=== PATIENT | male | born 1985 | race Caucasian/White ===

== ENCOUNTER 2020-02-27 00:55 | Emergency (ER) | payer BC, SELFPAY ==
[2020-02-27] VITALS (8 sets, daily range): BP systolic 151–181; BP diastolic 92–110; PULSE 68–100; RESP 16–24; TEMP 36.1–36.7; O2SAT 96–99; BMI 34.2
--- NOTE | 2020-02-27 01:26 | US_ITS ---
WS: [id number] SCROTAL ULTRASOUND EXAMINATION CLINICAL INFORMATION: Testicular pain COMPARISON: None. FINDINGS: TESTES Normal in size and echotexture, without focal lesion. Color Doppler: Normal color Doppler flow pattern. Right testes size: 4.1 cm x 2.9 cm x 2.8 cm. Left testes size: 4.5 cm x 2.5 cm x 2.4 cm. EPIDIDYMIDES Normal in size and echotexture, without focal lesion. Color Doppler: Normal color Doppler flow pattern. Right epididymis size: 1.0 cm Left epididymis size: 1.6 cm . HYDROCELE None. VARICOCELE None. OTHER FINDINGS None. US/US scrotum [id number] IMPRESSION: 1. Large right varicocele measuring 2.8 x 1.6 cm 2. Testicles are otherwise unremarkable
[2020-02-27] MEDS: morphine 4 mg/mL SDV 1 mL IVP (01:48)
[2020-02-27 01:49] LABS: Basophils # 0.1 10^3/uL (0.0-0.1); Basophils % 0.8 %; Eosinophils # 0.1 10^3/uL (0.0-0.8); Eosinophils % 1.6 %; Hematocrit 44.2 % (42.0-52.0); Hemoglobin 15.6 g/dL (11.7-16.6); Lymphocytes # 2.6 10^3/uL (0.8-4.8); Lymphocytes % 28.7 %; Mean Corpuscular HGB Conc 35.3 g/dL (30.0-36.0); Mean Corpuscular Hemoglobin 38.4 pg (28.0-34.0); Mean Corpuscular Volume 108.9 fL (80-94); Mean Platelet Volume 8.8 fL (7.4-10.4); Monocytes # 0.7 10^3/uL (0.2-0.9); Monocytes % 7.3 %; Neutrophils # 5.44 10^3/uL (1.8-7.7); Neutrophils % 60.4 %; Nucleated Red Blood Cells % 0 %; Platelet Count 355 10^3/cmm (130-400); Red Blood Count 4.06 10^6/uL (4.1-5.3); Red Cell Distribution Width 14.8 % (12.1-15.1)
[2020-02-27] MEDS: ondansetron 2 mg/ML SDV 2 mL 4 MG IVP (01:49)
--- NOTE | 2020-02-27 01:55 | CTR_ITS ---
PROCEDURE INFORMATION: Exam: CT Abdomen And Pelvis Without Contrast Exam date and time: 02/27/2020 1:57 AM Age: 34 years old Clinical indication: Abdominal pain; Flank; Right; Additional info: Flank/abdominal pain TECHNIQUE: Imaging protocol: Computed tomography of the abdomen and pelvis without contrast. Radiation optimization: All CT scans at this facility use at least one of these dose optimization techniques: automated exposure control; mA and/or kV adjustment per patient size (includes targeted exams where dose is matched to clinical indication); or iterative reconstruction. COMPARISON: No relevant prior studies available. RADIATION DOSE METRICS: Total DLP (mGy-cm): 2348.4 FINDINGS: Lungs: The lung bases are clear. Liver: Unremarkable. Gallbladder and bile ducts: No definite gallbladder abnormality by CT. No biliary tree dilation. Pancreas: Unremarkable. Spleen: Unremarkable. Adrenals: Unremarkable. Kidneys and ureters: Mild right hydronephrosis and hydroureter. There is a 2 mm distal right ureteral calculus, adjacent to the UVJ in the urinary bladder. The calculus may have has already been passed into the urinary bladder, or possibly could still be in the intramural portion of the distal right ureter. Please correlate clinically. No definite/visible intrarenal calculus. No left hydronephrosis. No visible left ureteral calculus. Stomach and bowel: There are no CT findings to strongly suggest diverticulitis. Appendix: The appendix is visualized and appears normal. Intraperitoneal space: No free air, ascites, or bowel distention. Vasculature: No evidence for abdominal aortic aneurysm. Lymph nodes: No retroperitoneal adenopathy. Bladder: Possibly some mild diffuse urinary bladder wall thickening. Evaluation is somewhat limited, as the bladder is not well distended. While nonspecific, this could indicate evidence for cystitis. Please correlate clinically. Reproductive: Essentially unremarkable for age. Bones/joints: There is bilateral L5 spondylolysis, no significant/obvious spondylolisthesis. Soft tissues: Small umbilical hernia, containing only fat. CT/CT kidney stone [id number] IMPRESSION: 1. 2 mm distal right ureteral calculus, please see above discussion. 2. Mild right hydronephrosis and hydroureter. 3. Possible mild urinary bladder wall thickening, see above. 4. Normal appendix. 5. Other findings discussed above. Radiation Dose CTDIVOL = (mGy): DLP = 2348.4 (mGy-cm)
[2020-02-27] MEDS: HYDROmorphone 1 mg/mL INJ 1 mL IVP ×2 (02:01→04:03)
--- NOTE | 2020-02-27 02:01 | ED_ITS ---
HPI - Male Genitourinary General: Chief complaint: Urogenital-Male Stated complaint: side pain, testicle pain Time Seen by Provider: 02/27/20 01:34 Source: patient Mode of arrival: ambulatory Limitations: no limitations History of Present Illness: HPI Narrative: Casey is a nice 34-year-old male who comes in complaining of right testicular and flank pain. The pain started intermittently over the past few days but over the past 2 hours but is much more severe. He denies any hematuria, fever, vomiting, or any other complaints. Patient states overall he feels well but continues to have pain in his right testicle and flank. Associated symptoms: Deny dysuria, hematuria, nausea or vomiting Review of Systems Const: Denies: fever(s), chills, body aches, fatigue, malaise or diaphoresis Eyes: Denies: change in vision, blurry vision, blind spots, photophobia, eye discharge or eye redness ENMT: Denies: throat pain, odynophagia, hoarseness, swelling of lips/tongue, oral sores, ear or mastoid pain, ear discharge, change in hearing or nasal discharge Card: Denies: chest pain, palpitations, irregular heart rhythm, edema, lightheadedness, syncope, pre-syncope, dyspnea on exertion or orthopnea Resp: Denies: dyspnea, productive cough, non-productive cough, wheezing, hemoptysis or chest congestion GI: Denies: abdominal pain, nausea, vomiting, hematemesis, coffee ground emesis, heartburn, diarrhea, constipation, GI cramping, hematochezia or melena : Reports: flank pain; Denies: dysuria, urinary frequency, urinary urgency or hematuria Musc: Denies: neck pain, back pain, extremity pain, extremity swelling, joint pain, joint swelling, joint redness, joint warmth or joint stiffness Skin/Breast: Denies: rash, pruritus, erythema, skin tenderness or jaundice Neuro: Denies: headache(s), numbness in extremities, weakness in extremities, sensory changes, lack of coordination, difficulty walking, dizziness, vertigo, confusion, Slurred speech present or seizure-like activity Luciano/Lymph: Denies: easy bruising, easy bleeding, petechiae, purpura or enlarged lymph nodes All/Imm: Denies: urticaria, throat swelling, tongue swelling, facial swelling or acute wheezing PFSH ED PFSH: Medical History No pertinent past medical history Physical Exam Const: COMMON NORMALS: no acute distress, patient oriented x3, no limitations, healthy appearing and well nourished GENERAL APPEARANCE: cooperative, well kempt and well developed HENMT: COMMON NORMALS: normocephalic, atraumatic, external ears normal, EAC's normal and Normal external nose present HEAD & SCALP: normal to inspection, normocephalic and atraumatic FACE & SINUS: normal facial exam and face symmetric NOSE: Normal external nose present and Normal nares present EXTERNAL EAR: Yes external ears normal EXTERNAL AUDITORY CANAL: EAC's normal MOUTH: Normal oral and palatal mucosa present, lip normal and tongue normal Eye: COMMON NORMALS: Equal, round and reactive pupils present and conjunctivae normal GENERAL EYE: appearance normal, both eyes and all related structures ALIGNMENT: Yes alignment normal PERIORBITAL: periorbital findings normal EYELID: eyelids normal CONJUNCTIVA: Yes conjunctivae normal SCLERA: sclerae normal PUPIL: Yes Equal, round and reactive pupils present Neck/C-Spine: COMMON NORMALS: full ROM, no lymphadenopathy, supple, no meningeal signs and no JVD GENERAL: Yes normal visual inspection and Yes trachea midline Chest: COMMONS NORMALS: normal inspection of the chest and normal palpation of entire chest wall Resp: COMMON NORMALS: normal respiratory effort, No retractions and No use of accessory muscles EFFORT & INSPECTION: Yes able to speak in complete sentences and Yes symmetric chest movement AUSCULTATION: no crackles, no rales, no rhonchi and no wheezes Cardio: COMMON NORMALS: no JVD, regular rate, regular rhythm, S1 normal heart sound present and S2 normal heart sound present RATE: regular rate RHYTHM: regular rhythm HEART SOUNDS: S1 normal heart sound present, S2 normal heart sound present, no click, no gallops, no murmurs, no rubs and abnormal split S2 GI: COMMON NORMALS: Soft to palpation and No hepatosplenomegaly present PALPATION: Yes Soft to palpation, No Tenderness to palpation present (GI), No Guarding due to palpation present (GI), No Rigid due to palpation, Yes No hepatosplenomegaly present, No Hernia present, No Palpable mass present and No Pulsatile mass present : COMMON NORMALS: Yes no CVA tenderness BLADDER/KIDNEY EXAM: Yes no CVA tenderness MALE GROIN/PERINEUM EXAM: Yes other (Normal testicular exam. Testicles with normal lie. Positive cremasteric reflex. No evidence of torsion. No evidence of epididymitis.) Back/Pelvis: COMMON NORMALS: no CVA tenderness, thoracic and lumbar spine normal to inspection, no thoracic nor lumbar tenderness and thoraco-lumbar ROM normal Extremity: COMMON NORMALS: normal to inspection, full ROM, capillary refill normal, no joint enlargement, no clubbing, cyanosis or edema and no calf tenderness Neuro: COMMON NORMALS: patient oriented x3, CN's II-XII intact bilaterally, moves all extremities, no focal motor deficits and no sensory deficits noted MENINGEAL SIGNS: Yes no meningeal signs SPEECH: speech normal Psych: COMMON NORMALS: mental status grossly normal, Normal thought process present, cooperative, normal affect, speech normal and activity/motor behavior normal APPEARANCE: Yes well kempt SPEECH: Yes normal speech THOUGHT PROCESS: Normal thought process present Skin: COMMON NORMALS: no rashes or lesions noted, turgor normal, no jaundice, no petechiae and no mottling GENERAL SKIN EXAM: no rashes or lesions noted and turgor normal Course Vital Signs: Vital signs: Vital Signs Temperature 96.9 F L 02/27/20 01:28 Pulse Rate 100 02/27/20 03:50 Respiratory Rate 18 02/27/20 04:03 Blood Pressure 151/100 02/27/20 03:50 Pulse Oximetry 98 02/27/20 03:50 MDM - Male MDM Narrative: Medical decision making narrative: Casey is a nice 34-year-old male who comes in complaining of pain in his right testicle and flank. Ultrasound is unremarkable but CT scan shows a 2 mm stone of the distal right ureter. There is no sign of appendicitis. The patient is pain-free after IV pain medication here. I have instructed him how to strain urine and to follow-up with Dr. Ha. He agrees to return should his symptoms change or worsen. There are white cells in his urine with pyuria but there is no leukocyte esterase, no bacteria and no nitrites. Patient has no other's clinical sign of infection. Lab Data: Attestation: I reviewed the patient's lab results. Labs: Lab Results 02/27/20 02/27/20 02/27/20 Range/Units 01:41 01:41 03:32 WBC 9.0 (4.0-10.0) 10^3/ uL RBC 4.06 L (4.1-5.3) 10^6/u L Hgb 15.6 (11.7-16.6) g/dL Hct 44.2 (42.0-52.0) % MCV 108.9 H (80-94) fL MCH 38.4 H (28.0-34.0) pg MCHC 35.3 (30.0-36.0) g/dL RDW 14.8 (12.1-15.1) % Plt Count 355 (130-400) 10^3/c mm MPV 8.8 (7.4-10.4) fL Neut % (Auto) 60.4 % Lymph % (Auto) 28.7 % Russell % (Auto) 7.3 % Eos % (Auto) 1.6 % Baso % (Auto) 0.8 % Neut # (Auto) 5.44 (1.8-7.7) 10^3/u L Lymph # (Auto) 2.6 (0.8-4.8) 10^3/u L Russell # (Auto) 0.7 (0.2-0.9) 10^3/u L Eos # (Auto) 0.1 (0.0-0.8) 10^3/u L Baso # (Auto) 0.1 (0.0-0.1) 10^3/u L Nucleated RBC % (a uto) 0 % Nucleated RBCs # 0.0 /100WBC Sodium 140 (136-145) mmol/L Potassium 3.7 (3.5-5.1) mmol/L Chloride 102 (98-107) mmol/L Carbon Dioxide 22 (22-29) mmol/L Anion Gap 19.7 H (5-19) BUN 5 L (6-20) mg/dL Creatinine 0.8 (0.7-1.2) mg/dL GFR Calculation 110.7 (90-130) mL/min Glucose 187 H (65-115) mg/dL Calculated Osmolal ity 291 (285-295) mOsm/k g Calcium 8.8 (8.5-10.5) mg/dL Total Bilirubin 0.7 (0.15-1.2) mg/dL AST 153 H (0-40) U/L ALT 149 H (0-41) U/L Alkaline Phosphata se 105 (40-130) IU/L Total Protein 7.4 (6.6-8.7) g/dL Albumin 4.2 (3.5-5.2) g/dL Globulin 3.2 (1.3-4.6) g/dL Urine Color Dark yellow (Yellow) Urine Appearance Clear (CLEAR) Urine pH 5 (5-7) Ur Specific Gravit y 1.025 (1.005-1.030) Urine Protein Trace (Negative) Urine Glucose (UA) Norm (Normal) Urine Ketones 1+ H (Negative) Urine Blood 3+ H (Negative) Urine Nitrate Negative (Negative) Urine Bilirubin Neg (NEGATIVE) Urine Urobilinogen 1 H (Negative) mg/dL Ur Leukocyte Debi ase Negative (Negative) Urine RBC >100 H (0-2) /hpf Urine WBC 10-15 H (0-5) /hpf Ur Squamous Epith Cells 0-4 H (0-5) Amorphous Sediment Not Reportable Urine Bacteria Trace (NONE) Hyaline Casts 0-4 H Imaging Data: Ultrasound Testicles: My impression: Tech interpretation -varicocele present on the right but no evidence of testicular torsion or epididymitis. No acute abnormalities. No hernia seen. Please see full report. CT Abd/Pel: Radiologist's impression: [address] [address] [address] Scan Report Signed Patient: Lesley Lopes #: [id number] : 1985Acct#:[id number] Age/Sex: 34 / MADM Date: 02/27/20 Loc: ERRoom/Bed: Attending Dr: Ordering Provider/Ordering MD: Nikia Flores DO Date of Service: 02/27/20 Procedure(s): CT kidney stone [id number] Accession Number(s): [id number] Report Number: [id number] PROCEDURE INFORMATION: Exam: CT Abdomen And Pelvis Without Contrast Exam date and time: 02/27/2020 1:57 AM Age: 34 years old Clinical indication: Abdominal pain; Flank; Right; Additional info: Flank/abdominal pain TECHNIQUE: Imaging protocol: Computed tomography of the abdomen and pelvis without contrast. Radiation optimization: All CT scans at this facility use at least one of these dose optimization techniques: automated exposure control; mA and/or kV adjustment per patient size (includes targeted exams where dose is matched to clinical indication); or iterative reconstruction. COMPARISON: No relevant prior studies available. RADIATION DOSE METRICS: Total DLP (mGy-cm): 2348.4 FINDINGS: Lungs: The lung bases are clear. Liver: Unremarkable. Gallbladder and bile ducts: No definite gallbladder abnormality by CT. No biliary tree dilation. Pancreas: Unremarkable. Spleen: Unremarkable. Adrenals: Unremarkable. Kidneys and ureters: Mild right hydronephrosis and hydroureter. There is a 2 mm distal right ureteral calculus, adjacent to the UVJ in the urinary bladder. The calculus may have has already been passed into the urinary bladder, or possibly could still be in the intramural portion of the distal right ureter. Please correlate clinically. No definite/visible intrarenal calculus. No left hydronephrosis. No visible left ureteral calculus. Stomach and bowel: There are no CT findings to strongly suggest diverticulitis. Appendix: The appendix is visualized and appears normal. Intraperitoneal space: No free air, ascites, or bowel distention. Vasculature: No evidence for abdominal aortic aneurysm. Lymph nodes: No retroperitoneal adenopathy. Bladder: Possibly some mild diffuse urinary bladder wall thickening. Evaluation is somewhat limited, as the bladder is not well distended. While nonspecific, this could indicate evidence for cystitis. Please correlate clinically. Reproductive: Essentially unremarkable for age. Bones/joints: There is bilateral L5 spondylolysis, no significant/obvious spondylolisthesis. Soft tissues: Small umbilical hernia, containing only fat. CT/CT kidney stone [id number] IMPRESSION: 1. 2 mm distal right ureteral calculus, please see above discussion. 2. Mild right hydronephrosis and hydroureter. 3. Possible mild urinary bladder wall thickening, see above. 4. Normal appendix. 5. Other findings discussed above. Radiation Dose CTDIVOL = (mGy): DLP = 2348.4 (mGy-cm) Dictated By:Filipe Marcum MD Signed By:Filipe Marcum MDSigned Date/Time:02/27/20310 DD/ 8 Discharge Plan Discharge Patient Disposition: Home Clinical Impression: Ureteral calculi Condition: Stable Prescriptions: New ibuprofen 800 mg tablet 800 mg PO TID PRN (Reason: pain) Qty: 30 RF: 0 [place] 5-325 mg tablet 1 tab PO Q6H PRN (Reason: pain) 5 Days Qty: 20 RF: 0 Cipro 500 mg tablet 500 mg PO BID Qty: 20 RF: 0 promethazine 25 mg tablet 25 mg PO Q4H PRN (Reason: nausea and vomiting) Qty: 20 RF: 0 Discharge Orders: Discharge Order (Routine); Ordered 02/27/20 Ordered By: Nikia Flores Referrals: Gerson Ha MD [Physician] - 1-3 days Discharge Diet: Advance as tolerated Discharge Activity: Increase activity as tolerated Patient Instructions: Renal Colic (ED) Activity Restrictions/Additional Instructions: Please return to the ER immediately for any of the signs or symptoms listed on your discharge instruction sheets, worsening/changing of your symptoms, you are not getting better as quickly as expected, or for ANY other cause or concerns. Return to the ER for fever, vomiting, increased pain, or for any other cause for concern. Coding Level of Care Code ED Computer Help Desk Representative for Angel Esquivel
[2020-02-27 02:12] LABS: Alanine Aminotransferase 149 U/L (0-41); Albumin Level 4.2 g/dL (3.5-5.2); Alkaline Phosphatase 105 IU/L (40-130); Anion Gap 19.7 (5-19); Aspartate Amino Transferase 153 U/L (0-40); Blood Urea Nitrogen 5 mg/dL (6-20); Calcium 8.8 mg/dL (8.5-10.5); Carbon Dioxide 22 mmol/L (22-29); Chloride 102 mmol/L (98-107); Globulin 3.2 g/dL (1.3-4.6); Glomerular Filtration Rate 110.7 mL/min (90-130); Glucose 187 mg/dL (65-115); Osmolality Calculated 291 mOsm/kg (285-295); Potassium 3.7 mmol/L (3.5-5.1); Sodium 140 mmol/L (136-145); Total Bilirubin 0.7 mg/dL (0.15-1.2); Total Protein 7.4 g/dL (6.6-8.7)
[2020-02-27 04:11] LABS: Bilirubin Urine Neg (NEGATIVE); Blood Urine 3+ (Negative); Glucose Urine UA Norm (Normal); Ketones Urine 1+ (Negative); Leukocyte Esterase Urine Negative (Negative); Nitrate Urine Negative (Negative); Protein Urine Trace (Negative); RBC Urine >100 /hpf (0-2); Specific Gravity, Urine 1.025 (1.005-1.030); Squamous Epithelial Cell Urine 0-4 (0-5); Urine Appearance Clear (CLEAR); Urine Color Dark Yellow (Yellow); Urobilinogen Urine 1 mg/dL (Negative); pH Urine 5 (5-7)
[2020-02-27 04:12] LABS: Bacteria Urine TRACE; Hyaline Casts Urine 0-4
[2020-02-27] MEDS: cefTRIAXone 1,000 MG in sodium chloride 0.9% (plus) 50 ML 100 MG IV (04:34)
[2020-02-27] MEDS: ciprofloxacin 500 mg Tablet PO (04:38)
[2020-02-27] MEDS: ketorolac 30 mg/mL INJ 10 MG IVP (04:38)
--- NOTE | 2020-02-28 10:12 | DCPLANNER ---
affiliate manager had message to schedule a follow up appointment for patient with Dr. Ha. affiliate manager called the office of Dr. Ha, spoke with Dorcas, gave clinic patients information. affiliate manager was told that patients information would be printed and given to Luisana for review. Clinic will call patient with appointment information.
--- NOTE | 2020-02-29 10:45 | DCPLANNER ---
Patient has a follow up appointment scheduled for , March 07, [address] at 8:[address] Ha. Clinic will call patient with appointment information.
--- NOTE | 2020-04-19 08:18 | DCPLANNER ---
Patient had a follow up appointment scheduled for 03.07.[address] Ha - patient did attend the appointment.
== END 2020-02-27 05:18 | disposition home or self-care (01) ==
PROVIDERS: Emergency Provider Emergency Medicine
DX: N20.1 Calculus of ureter (principal)
CPT/HCPCS: 12345; 74176; 76870; 80053; 81001; 85025; 87491; 87591; 96365; 96375; 96376; 99283; 99284; J0696; J1170; J1885; J2270; J2405

== ENCOUNTER 2020-03-07 07:29 | Outpatient (CLI) | payer BC, SELFPAY ==
--- NOTE | 2020-03-07 07:30 | XR_ITS ---
WS: [id number] EXAM: ABDOMINAL KUB DATE OF EXAMINATION: 03/07/2020, 0746 hours COMPARISON: CT of the abdomen and pelvis from 02/27/2020 HISTORY: Patient is 34 years old with a history of kidney stones. Follow-up. FINDINGS: Bowel gas pattern is normal. No calcifications are seen over the kidneys silhouettes or course of the upper ureters. The stone noted on the prior CT examination was at the ureterovesical juncture on the right. I'm not convinced I see this stone on today's examination. Just inferior to this is an area o f calcification consistent with a phlebolith on the CT examination. XR/XR KUB [id number] IMPRESSION: Previous noted stone on the right at the ureterovesicular junction not demonstr ated on this exam.
== END 2020-03-07 07:30 | disposition home or self-care (01) ==
LOC: RAD 07:29
PROVIDERS: PCP Emergency Medicine; Visit Provider Urology
DX: N20.1 Calculus of ureter (principal)
CPT/HCPCS: 74018

== ENCOUNTER 2020-06-04 16:54 | Emergency (ER) | payer BC, SELFPAY ==
[2020-06-04 17:02] VITALS: BP 156/118; PULSE 113; RESP 14; TEMP 36.6; O2SAT 98; BMI 45.6
--- NOTE | 2020-06-04 17:21 | ED_ITS ---
Documented by User: Lamonte Brooks DO 06/05/20 06:19 HPI - Recheck/Abnormal Lab/Rx General: Chief Complaint: Recheck/Abnormal Lab/Rx Stated Complaint: ABNORMAL LABS Time Seen by Provider: 06/04/20 17:20 History of Present Illness: HPI narrative: 34-year-old male who comes in he admits to being a heavy drinker. He seen his primary care doctor earlier today and had lab work done his urine was very dark although he did not have any jaundice. The abdomen was mildly distended as well. Initial lab work was done in his office CBC was relatively unremarkable but his CMP showed a T bili of 3 with an ALT of 121 and AST of 176. Patient tells me he drinks about 6-7 shots of whiskey today plus about a sixpack of beer although he will not be specific on how long he has been doing that. He has not drank for the last several days time and seen the patient initially is not having any shakes or signs of any kind of withdrawal. MD complaint: abnormal lab Context: called for abnormal lab result Associated symptoms: fever Review of Systems Const: Denies: fever(s), chills, body aches, change in appetite, fatigue or malaise ENMT: Denies: throat pain, ear or mastoid pain, nasal discharge or nasal congestion Card: Denies: chest pain, edema, dyspnea on exertion or orthopnea Resp: Denies: dyspnea, productive cough or non-productive cough GI: Denies: abdominal pain, nausea, vomiting, hematemesis, coffee ground emesis, diarrhea, constipation, bloating, hematochezia or melena : Denies: flank pain, dysuria, urinary frequency or urinary urgency Skin/Breast: Denies: rash or pruritus PFSH ED PFSH: Medical History No pertinent past medical history Urolithiasis Surgical History Hx of knee surgery Social History Smoking and tobacco status: current every day smoker Alcohol intake: current Alcohol intake frequency: 3 or more drinks per day Alcohol type: beer and hard liquor Substance/Drug Use: current Substance/Drug use frequency: daily Substance/Drug use type: Marijuana Adopted: No Caregiver/support person: No Lives independently: No Household members: significant other Marital status: Life Partner Current occupational status: employed History of recent travel: No Physical Exam Const: COMMON NORMALS: no acute distress GENERAL APPEARANCE: cooperative and comfortable ORIENTATION/CONSCIOUSNESS: Yes awake, Yes oriented to person, Yes oriented to place and Yes oriented to time HENMT: COMMON NORMALS: normocephalic, atraumatic and hearing grossly normal bilaterally HEAD & SCALP: normocephalic and atraumatic Eye: COMMON NORMALS: Equal, round and reactive pupils present, EOMs intact bilaterally, conjunctivae normal and no scleral icterus CONJUNCTIVA: Yes con junctivae normal PUPIL: Yes Equal, round and reactive pupils present Neck/C-Spine: COMMON NORMALS: full ROM, no lymphadenopathy, supple and no JVD Lymph: LYMPHATIC: no lymphadenopathy noted and no lymphedema noted Resp: COMMON NORMALS: normal respiratory effort, No retractions, No use of accessory muscles and clear to auscultation bilaterally AUSCULTATION: clear to auscultation bilaterally Cardio: COMMON NORMALS: no JVD, regular rate, regular rhythm and No murmurs present (Cardio) RATE: regular rate RHYTHM: regular rhythm GI: COMMON NORMALS: Soft to palpation AUSCULTATION: Yes normoactive bowel sounds PALPATION: Yes Soft to palpation, No Tenderness to palpation present (GI), No Guarding due to palpation present (GI), Yes Hepatomegaly present and Yes Ascites present (Mild amount) Extremity: COMMON NORMALS: normal to inspection, capillary refill normal, no clubbing, cyanosis or edema and no calf tenderness GENERAL: Yes edema (1-2+ bilateral lower extremity edema) Neuro: SENSORIUM/ORIENTATION: Yes oriented to person, Yes oriented to place and Yes oriented to time Skin: COMMON NORMALS: no rashes or lesions noted GENERAL SKIN EXAM: no rashes or lesions noted Course Vital Signs: Vital signs: Vital Signs Temperature 97.9 F 06/04/20 17:02 Pulse Rate 105 H 06/04/20 21:08 Respiratory Rate 14 06/04/20 21:08 Blood Pressure 126/105 06/04/20 21:08 Pulse Oximetry 96 06/04/20 21:08 MDM - Recheck/Abnormal Lab/Rx MDM Narrative: Medical decision making narrative: Care turned over to Dr. Morgan at change of shift. Please see her notes for final diagnosis and disposition. Lab Data: Labs: Lab Results 06/04/20 06/04/20 06/04/20 Range/Units 18:20 18:20 18:20 WBC 9.8 (4.0-10.0) 10^3/ uL RBC 3.09 L (4.1-5.3) 10^6/u L Hgb 13.0 (11.7-16.6) g/dL Hct 36.0 L (42.0-52.0) % MCV 116.5 H (80-94) fL MCH 42.1 H (28.0-34.0) pg MCHC 36.1 H (30.0-36.0) g/dL RDW 15.3 H (12.1-15.1) % Plt Count 284 (130-400) 10^3/c mm MPV 9.0 (7.4-10.4) fL Neut % (Auto) 70.7 % Lymph % (Auto) 21.5 % Ramsey % (Auto) 5.4 % Eos % (Auto) 1.2 % Baso % (Auto) 0.7 % Neut # (Auto) 6.95 (1.8-7.7) 10^3/u L Lymph # (Auto) 2.1 (0.8-4.8) 10^3/u L Ramsey # (Auto) 0.5 (0.2-0.9) 10^3/u L Eos # (Auto) 0.1 (0.0-0.8) 10^3/u L Baso # (Auto) 0.1 (0.0-0.1) 10^3/u L Nucleated RBC % (a uto) 0 % Nucleated RBCs # 0.0 /100WBC PT 13.10 (12.1-14.9) SECO NDS INR 0.96 (0.8-1.2) APTT 28.0 (23.9-36.7) SECO NDS Sodium 132 L (136-145) mmol/L Potassium 3.5 (3.5-5.1) mmol/L Chloride 93 L (98-107) mmol/L Carbon Dioxide 27 (22-29) mmol/L Anion Gap 15.5 (5-19) BUN 10 (6-20) mg/dL Creatinine 0.6 L (0.7-1.2) mg/dL GFR Calculation 154.2 H (90-130) mL/min Glucose 105 (65-115) mg/dL Calculated Osmolal ity 273 L (285-295) mOsm/k g Calcium 9.8 (8.5-10.5) mg/dL Total Bilirubin 2.5 H (0.15-1.2) mg/dL AST 151 H (0-40) U/L ALT 104 H (0-41) U/L Alkaline Phosphata se 109 (40-130) IU/L Creatine Kinase 40 (39-308) U/L Total Protein 6.6 (6.6-8.7) g/dL Albumin 4.1 (3.5-5.2) g/dL Globulin 2.5 (1.3-4.6) g/dL Urine Color (Yellow) Urine Appearance (CLEAR) Urine pH (5-7) Ur Specific Gravit y (1.005-1.030) Urine Protein (Negative) Urine Glucose (UA) (Normal) Urine Ketones (Negative) Urine Blood (Negative) Urine Nitrate (Negative) Urine Bilirubin (Negative) Urine Urobilinogen (Negative) mg/dL Ur Leukocyte Debi ase (Negative) Urine RBC (0-2) /hpf Urine WBC (0-5) /hpf Ur Squamous Epith Cells (0-5) /hpf Amorphous Sediment Urine Bacteria (NONE) /hpf Urine Mucus /hpf 11/17/20 Range/Units 18:28 WBC (4.0-10.0) 10^3/ uL RBC (4.1-5.3) 10^6/u L Hgb (11.7-16.6) g/dL Hct (42.0-52.0) % MCV (80-94) fL MCH (28.0-34.0) pg MCHC (30.0-36.0) g/dL RDW (12.1-15.1) % Plt Count (130-400) 10^3/c mm MPV (7.4-10.4) fL Neut % (Auto) % Lymph % (Auto) % Ramsey % (Auto) % Eos % (Auto) % Baso % (Auto) % Neut # (Auto) (1.8-7.7) 10^3/u L Lymph # (Auto) (0.8-4.8) 10^3/u L Ramsey # (Auto) (0.2-0.9) 10^3/u L Eos # (Auto) (0.0-0.8) 10^3/u L Baso # (Auto) (0.0-0.1) 10^3/u L Nucleated RBC % (a uto) % Nucleated RBCs # /100WBC PT (12.1-14.9) SECO NDS INR (0.8-1.2) APTT (23.9-36.7) SECO NDS Sodium (136-145) mmol/L Potassium (3.5-5.1) mmol/L Chloride (98-107) mmol/L Carbon Dioxide (22-29) mmol/L Anion Gap (5-19) BUN (6-20) mg/dL Creatinine (0.7-1.2) mg/dL GFR Calculation (90-130) mL/min Glucose (65-115) mg/dL Calculated Osmolal ity (285-295) mOsm/k g Calcium (8.5-10.5) mg/dL Total Bilirubin (0.15-1.2) mg/dL AST (0-40) U/L ALT (0-41) U/L Alkaline Phosphata se (40-130) IU/L Creatine Kinase (39-308) U/L Total Protein (6.6-8.7) g/dL Albumin (3.5-5.2) g/dL Globulin (1.3-4.6) g/dL Urine Color [place] (Yellow) Urine Appearance Clear (CLEAR) Urine pH 6.5 (5-7) Ur Specific Gravit y 1.010 (1.005-1.030) Urine Protein 1+ H (Negative) Urine Glucose (UA) Norm (Normal) Urine Ketones 3+ H (Negative) Urine Blood Neg (Negative) Urine Nitrate Negative (Negative) Urine Bilirubin 2+ H (Negative) Urine Urobilinogen 4+ H (Negative) mg/dL Ur Leukocyte Debi ase Negative (Negative) Urine RBC None (0-2) /hpf Urine WBC 0-4 H (0-5) /hpf Ur Squamous Epith Cells 0-4 H (0-5) /hpf Amorphous Sediment Not Reportable Urine Bacteria Trace (NONE) /hpf Urine Mucus 4+ /hpf Discharge Plan Discharge Patient Disposition: Home Clinical Impression: Alcoholic hepatitis with ascites Hypertension Qualifiers: Hypertension type: unspecified Qualified Code(s): I10 - Essential (primary) hypertension Condition: Stable Prescriptions: No Action bupropion HCl 150 mg tablet sustained-release 12 hr 150 mg PO BID RF: 0 Discharge Orders: Discharge Order (Routine); Ordered 06/04/20 Ordered By: Cassie Morgan Referrals: Gui Rojo MD [Primary Care Provider] - Discharge Diet: As Directed Discharge Activity: Resume usual activity Patient Instructions: Abuse of Alcohol (ED), Non-Alcoholic Fatty Liver Disease (ED) Activity Restrictions/Additional Instructions: We are glad that you have decided to make some lifestyle changes to improve your health. Continue to avoid alcohol and continue your efforts to quit smoking. Diet modifications will also help to heal your liver and bring your blood pressure down. Regular moderate exercise is also helpful. Return to the ER for any new or worse symptoms. Continue follow-up with Dr. Rojo in pursuing your health improvements. Coding Level of Care Code ED Ship Fastener for Chg Fwd Exam Comprehensive Documented by User: Cassie Morgan MD 06/05/20 05:21 HPI - Recheck/Abnormal Lab/Rx General: Chief Complaint: Recheck/Abnormal Lab/Rx Stated Complaint: ABNORMAL LABS Time Seen by Provider: 06/04/20 17:20 PFSH ED PFSH: Medical History No pertinent past medical history Urolithiasis Surgical History Hx of knee surgery Social History Smoking and tobacco status: current every day smoker Alcohol intake: current Alcohol intake frequency: 3 or more drinks per day Alcohol type: beer and hard liquor Substance/Drug Use: current Substance/Drug use frequency: daily Substance/Drug use type: Marijuana Adopted: No Caregiver/support person: No Lives independently: No Household members: significant other Marital status: Life Partner Current occupational status: employed History of recent travel: No Course ED course: I assumed care of this patient from Dr. Brooks at shift change. He was sent over to the ER for evaluation of dark urine and elevated bilirubin and LFTs. His labs were not significantly changed from those done at [facility]. Initially he was little tachycardic and hypertensive but that resolved while he was in the department. He is not shaky or anxious. Is been about 4 days since he did any significant drinking and has not had any alcohol since Wednesday. He expressed motivation to change his lifestyle. He and I had a fairly long discussion about things that he could do to improve his health and help his liver recover. He also has good follow-up as an outpatient and he said he has good social support with a girlfriend who is studying to be a nurse. I do not think he needs to be in the hospital. Vital Signs: Vital signs: Vital Signs Temperature 97.9 F 06/04/20 17:02 Pulse Rate 105 H 06/04/20 21:08 Respiratory Rate 14 06/04/20 21:08 Blood Pressure 126/105 06/04/20 21:08 Pulse Oximetry 96 06/04/20 21:08 MDM - Recheck/Abnormal Lab/Rx Lab Data: Labs: Lab Results 06/04/20 06/04/20 06/04/20 Range/Units 18:20 18:20 18:20 WBC 9.8 (4.0-10.0) 10^3/ uL RBC 3.09 L (4.1-5.3) 10^6/u L Hgb 13.0 (11.7-16.6) g/dL Hct 36.0 L (42.0-52.0) % MCV 116.5 H (80-94) fL MCH 42.1 H (28.0-34.0) pg MCHC 36.1 H (30.0-36.0) g/dL RDW 15.3 H (12.1-15.1) % Plt Count 284 (130-400) 10^3/c mm MPV 9.0 (7.4-10.4) fL Neut % (Auto) 70.7 % Lymph % (Auto) 21.5 % Ramsey % (Auto) 5.4 % Eos % (Auto) 1.2 % Baso % (Auto) 0.7 % Neut # (Auto) 6.95 (1.8-7.7) 10^3/u L Lymph # (Auto) 2.1 (0.8-4.8) 10^3/u L Ramsey # (Auto) 0.5 (0.2-0.9) 10^3/u L Eos # (Auto) 0.1 (0.0-0.8) 10^3/u L Baso # (Auto) 0.1 (0.0-0.1) 10^3/u L Nucleated RBC % (a uto) 0 % Nucleated RBCs # 0.0 /100WBC PT 13.10 (12.1-14.9) SECO NDS INR 0.96 (0.8-1.2) APTT 28.0 (23.9-36.7) SECO NDS Sodium 132 L (136-145) mmol/L Potassium 3.5 (3.5-5.1) mmol/L Chloride 93 L (98-107) mmol/L Carbon Dioxide 27 (22-29) mmol/L Anion Gap 15.5 (5-19) BUN 10 (6-20) mg/dL Creatinine 0.6 L (0.7-1.2) mg/dL GFR Calculation 154.2 H (90-130) mL/min Glucose 105 (65-115) mg/dL Calculated Osmolal ity 273 L (285-295) mOsm/k g Calcium 9.8 (8.5-10.5) mg/dL Total Bilirubin 2.5 H (0.15-1.2) mg/dL AST 151 H (0-40) U/L ALT 104 H (0-41) U/L Alkaline Phosphata se 109 (40-130) IU/L Creatine Kinase 40 (39-308) U/L Total Protein 6.6 (6.6-8.7) g/dL Albumin 4.1 (3.5-5.2) g/dL Globulin 2.5 (1.3-4.6) g/dL Urine Color (Yellow) Urine Appearance (CLEAR) Urine pH (5-7) Ur Specific Gravit y (1.005-1.030) Urine Protein (Negative) Urine Glucose (UA) (Normal) Urine Ketones (Negative) Urine Blood (Negative) Urine Nitrate (Negative) Urine Bilirubin (Negative) Urine Urobilinogen (Negative) mg/dL Ur Leukocyte Debi ase (Negative) Urine RBC (0-2) /hpf Urine WBC (0-5) /hpf Ur Squamous Epith Cells (0-5) /hpf Amorphous Sediment Urine Bacteria (NONE) /hpf Urine Mucus /hpf 06/04/20 Range/Units 18:28 WBC (4.0-10.0) 10^3/ uL RBC (4.1-5.3) 10^6/u L Hgb (11.7-16.6) g/dL Hct (42.0-52.0) % MCV (80-94) fL MCH (28.0-34.0) pg MCHC (30.0-36.0) g/dL RDW (12.1-15.1) % Plt Count (130-400) 10^3/c mm MPV (7.4-10.4) fL Neut % (Auto) % Lymph % (Auto) % Ramsey % (Auto) % Eos % (Auto) % Baso % (Auto) % Neut # (Auto) (1.8-7.7) 10^3/u L Lymph # (Auto) (0.8-4.8) 10^3/u L Ramsey # (Auto) (0.2-0.9) 10^3/u L Eos # (Auto) (0.0-0.8) 10^3/u L Baso # (Auto) (0.0-0.1) 10^3/u L Nucleated RBC % (a uto) % Nucleated RBCs # /100WBC PT (12.1-14.9) SECO NDS INR (0.8-1.2) APTT (23.9-36.7) SECO NDS Sodium (136-145) mmol/L Potassium (3.5-5.1) mmol/L Chloride (98-107) mmol/L Carbon Dioxide (22-29) mmol/L Anion Gap (5-19) BUN (6-20) mg/dL Creatinine (0.7-1.2) mg/dL GFR Calculation (90-130) mL/min Glucose (65-115) mg/dL Calculated Osmolal ity (285-295) mOsm/k g Calcium (8.5-10.5) mg/dL Total Bilirubin (0.15-1.2) mg/dL AST (0-40) U/L ALT (0-41) U/L Alkaline Phosphata se (40-130) IU/L Creatine Kinase (39-308) U/L Total Protein (6.6-8.7) g/dL Albumin (3.5-5.2) g/dL Globulin (1.3-4.6) g/dL Urine Color [place] (Yellow) Urine Appearance Clear (CLEAR) Urine pH 6.5 (5-7) Ur Specific Gravit y 1.010 (1.005-1.030) Urine Protein 1+ H (Negative) Urine Glucose (UA) Norm (Normal) Urine Ketones 3+ H (Negative) Urine Blood Neg (Negative) Urine Nitrate Negative (Negative) Urine Bilirubin 2+ H (Negative) Urine Urobilinogen 4+ H (Negative) mg/dL Ur Leukocyte Debi ase Negative (Negative) Urine RBC None (0-2) /hpf Urine WBC 0-4 H (0-5) /hpf Ur Squamous Epith Cells 0-4 H (0-5) /hpf Amorphous Sediment Not Reportable Urine Bacteria Trace (NONE) /hpf Urine Mucus 4+ /hpf Discharge Plan Discharge Patient Disposition: Home Clinical Impression: Alcoholic hepatitis with ascites Hypertension Qualifiers: Hypertension type: unspecified Qualified Code(s): I10 - Essential (primary) hypertension Condition: Stable Prescriptions: No Action bupropion HCl 150 mg tablet sustained-release 12 hr 150 mg PO BID RF: 0 Discharge Orders: Discharge Order (Routine); Ordered 06/04/20 Ordered By: Cassie Morgan Referrals: Gui Rojo MD [Primary Care Provider] - Discharge Diet: As Directed Discharge Activity: Resume usual activity Patient Instructions: Abuse of Alcohol (ED), Non-Alcoholic Fatty Liver Disease (ED) Activity Restrictions/Additional Instructions: We are glad that you have decided to make some lifestyle changes to improve your health. Continue to avoid alcohol and continue your efforts to quit smoking. Diet modifications will also help to heal your liver and bring your blood pressure down. Regular moderate exercise is also helpful. Return to the ER for any new or worse symptoms. Continue follow-up with Dr. Rojo in pursuing your health improvements. Coding Level of Care Code ED Ship Fastener for Angel Fwd Exam Comprehensive
--- NOTE | 2020-06-04 17:21 | ECG_ITS ---
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 Measurements Intervals [place] Rate: 100 P: 7 KS: 123 QRS: 5 QRSD: 106 T: 31 QT: 376 QTc: 485 Interpretive Statements SINUS TACHYCARDIA INCOMPLETE RIGHT BUNDLE BRANCH BLOCK [90+ ms QRS DURATION, TERMINAL R IN V1/V2, 40+ ms S IN I/aVL/V4/V5/V6] No previous ECG available for comparison Electronically Signed On 06-04-2020 21:37:24 COMMERCIAL COORDINATOR by Evelyn Panda M.D. [id number]
--- NOTE | 2020-06-04 17:34 | US_ITS ---
WS: [id number] RIGHT UPPER QUADRANT ULTRASOUND HISTORY: Hyperbilirubinemia COMPARISON: None available. Liver: 22.0 cm in length. Marked hepatomegaly. Moderate diffuse hepatic steatosis and coarsened echot exture. No bile duct dilatation. Gallbladder: Normally distended gallbladder with no stones or wall thickening. CBD: 0.5 cm Pancreas: Not well visualized. Right kidney: 11.6 cm in length. Normal size and echogenicity. No hydronephrosis or mass. Aorta and IVC: Unremarkable abdominal aorta and IVC. No ascites. US/US liver [id number] IMPRESSION: 1. Normal gallbladder. 2. Marked hepatomegaly and hepatic steatosis.
[2020-06-04 18:29] LABS: Basophils # 0.1 10^3/uL (0.0-0.1); Basophils % 0.7 %; Eosinophils # 0.1 10^3/uL (0.0-0.8); Eosinophils % 1.2 %; Lymphocytes # 2.1 10^3/uL (0.8-4.8); Lymphocytes % 21.5 %; Mean Corpuscular HGB Conc 36.1 g/dL (30.0-36.0); Mean Corpuscular Hemoglobin 42.1 pg (28.0-34.0); Mean Corpuscular Volume 116.5 fL (80-94); Monocytes # 0.5 10^3/uL (0.2-0.9); Monocytes % 5.4 %; Neutrophils # 6.95 10^3/uL (1.8-7.7); Neutrophils % 70.7 %; Nucleated Red Blood Cells % 0 %; Platelet Count 284 10^3/cmm (130-400); Red Blood Count 3.09 10^6/uL (4.1-5.3); Red Cell Distribution Width 15.3 % (12.1-15.1); White Blood Count 9.8 10^3/uL (4.0-10.0)
[2020-06-04 18:36] VITALS: BP 156/113; PULSE 105; RESP 14; O2SAT 95
[2020-06-04 18:46] LABS: INR 0.96 (0.8-1.2)
[2020-06-04 18:54] LABS: Alanine Aminotransferase 104 U/L (0-41); Albumin Level 4.1 g/dL (3.5-5.2); Alkaline Phosphatase 109 IU/L (40-130); Anion Gap 15.5 (5-19); Aspartate Amino Transferase 151 U/L (0-40); Blood Urea Nitrogen 10 mg/dL (6-20); Calcium 9.8 mg/dL (8.5-10.5); Carbon Dioxide 27 mmol/L (22-29); Chloride 93 mmol/L (98-107); Creatine Phosphokinase 40 U/L (39-308); Globulin 2.5 g/dL (1.3-4.6); Glomerular Filtration Rate 154.2 mL/min (90-130); Glucose 105 mg/dL (65-115); Osmolality Calculated 273 mOsm/kg (285-295); Potassium 3.5 mmol/L (3.5-5.1); Sodium 132 mmol/L (136-145); Total Bilirubin 2.5 mg/dL (0.15-1.2); Total Protein 6.6 g/dL (6.6-8.7)
[2020-06-04 19:32] LABS: Bilirubin Urine 2+ (Negative); Blood Urine Neg (Negative); Glucose Urine UA Norm (Normal); Ketones Urine 3+ (Negative); Nitrate Urine Negative (Negative); Protein Urine 1+ (Negative); Urine Appearance Clear (CLEAR); Urine Color Orange (Yellow); Urobilinogen Urine 4+ mg/dL (Negative); pH Urine 6.5 (5-7)
[2020-06-04 19:33] LABS: Add Urine Microscopic? YES; Leukocyte Esterase Urine Negative (Negative)
[2020-06-04 19:34] LABS: Mucus Urine 4+ /hpf; Squamous Epithelial Cell Urine 0-4 /hpf (0-5); WBC Urine 0-4 /hpf (0-5)
[2020-06-04 19:36] LABS: Add Urine Culture? No; Bacteria Urine TRACE /hpf
[2020-06-04 19:52] VITALS: BP 129/87; PULSE 93; RESP 14; O2SAT 96
[2020-06-04 21:08] VITALS: BP 126/105; PULSE 105; RESP 14; O2SAT 96
== END 2020-06-04 21:09 | disposition home or self-care (01) ==
PROVIDERS: Family Medicine; Emergency Provider Emergency Medicine; PCP Family Medicine
DX: I10 Essential (primary) hypertension (principal); K70.11 Alcoholic hepatitis with ascites; F17.210 Nicotine dependence, cigarettes, uncomplicated
CPT/HCPCS: 12345; 76705; 80053; 81001; 82550; 85025; 85610; 85730; 93005; 99282; 99283

== ENCOUNTER 2020-06-26 11:52 | Emergency (ER) | payer BC, SELFPAY ==
[2020-06-26] VITALS (7 sets, daily range): BP systolic 131–168; BP diastolic 92–117; PULSE 103–119; RESP 14–22; TEMP 36.3; O2SAT 92–96; BMI 42.8
--- NOTE | 2020-06-26 12:27 | XR_ITS ---
WS: [id number] XR chest 1V portable [id number] REASON FOR EXAM: shortness of breath FINDINGS: The heart and the mediastinum are within normal limits. There are no prior chest films for comparison. There is subtle interstitial change in the left lower lung field peripherally. There also appears to be some peribronchial cuffing present in both lungs. There is a linear density in the right lower lung field which could represent scarring or linear atel ectasis. No significant abnormality of the bony thorax. XR/XR chest 1V portable [id number] IMPRESSION: Very subtle changes which may be indicative of early phase pneumonitis.
--- NOTE | 2020-06-26 12:27 | ECG_ITS ---
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 Measurements Intervals [place] Rate: 100 P: 24 SC: 110 QRS: -16 QRSD: 102 T: 31 QT: 370 QTc: 478 Interpretive Statements SINUS TACHYCARDIA WITH SHORT SC INTERVAL INDETERMINATE AXIS INCOMPLETE RIGHT BUNDLE BRANCH BLOCK [90+ ms QRS DURATION, TERMINAL R IN V1/V2, 40+ ms S IN I/aVL/V4/V5/V6] ABNORMAL RHYTHM ECG WARNING: DATA QUALITY MAY AFFECT INTERPRETATION Compared to ECG 06/04/2020 18:18:02 Short SC interval now present Indeterminate axis now present Electronically Signed On 06-26-2020 19:41:30 HOURLY TEAM MEMBERS by Joseph Wallace M.D. [id number]
[2020-06-26 12:49] LABS: Basophils # 0.1 10^3/uL (0.0-0.1); Basophils % 1.6 %; Eosinophils # 0.3 10^3/uL (0.0-0.8); Eosinophils % 3.5 %; Hematocrit 45.3 % (42.0-52.0); Hemoglobin 15.4 g/dL (11.7-16.6); Lymphocytes # 2.3 10^3/uL (0.8-4.8); Lymphocytes % 26.9 %; Mean Corpuscular Hemoglobin 36.8 pg (28.0-34.0); Mean Corpuscular Volume 108.4 fL (80-94); Mean Platelet Volume 10.3 fL (7.4-10.4); Monocytes # 0.9 10^3/uL (0.2-0.9); Monocytes % 9.9 %; Neutrophils # 4.97 10^3/uL (1.8-7.7); Neutrophils % 57.9 %; Nucleated Red Blood Cells % 0 %; Platelet Count 469 10^3/cmm (130-400); Red Blood Count 4.18 10^6/uL (4.1-5.3); Red Cell Distribution Width 15.9 % (12.1-15.1); White Blood Count 8.6 10^3/uL (4.0-10.0)
[2020-06-26] MEDS: FUROsemide 10 mg/mL SDV 4mL 40 MG IVP (12:49)
[2020-06-26 13:30] LABS: Troponin(5th) Baseline 8 ng/L (0-15)
[2020-06-26 13:37] LABS: Alanine Aminotransferase 34 U/L (0-41); Albumin Level 4.5 g/dL (3.5-5.2); Alkaline Phosphatase 95 IU/L (40-130); Anion Gap 17.8 (5-19); Aspartate Amino Transferase 26 U/L (0-40); Blood Urea Nitrogen 8 mg/dL (6-20); Calcium 9.9 mg/dL (8.5-10.5); Carbon Dioxide 22 mmol/L (22-29); Chloride 101 mmol/L (98-107); Globulin 2.6 g/dL (1.3-4.6); Glomerular Filtration Rate 110.7 mL/min (90-130); Glucose 97 mg/dL (65-115); NT Pro B Type Natriuretic Pept 88 pg/mL (0-125); Osmolality Calculated 280 mOsm/kg (285-295); Potassium 4.8 mmol/L (3.5-5.1); Sodium 136 mmol/L (136-145); Total Bilirubin 0.9 mg/dL (0.15-1.2); Total Protein 7.1 g/dL (6.6-8.7)
--- NOTE | 2020-06-26 13:46 | ED_ITS ---
HPI - SOB/Dyspnea General: Chief Complaint: Shortness of Breath/Dyspnea Stated Complaint: SOB, wheezing, covid - Time Seen by Provider: 06/26/20 12:10 History of Present Illness: HPI Narrative: Patient is a 34-year-old male seen for worsening shortness of breath and cough. He states that roughly a month ago he was started on water pills and blood pressure medication by primary care and subsequently lost 40 pounds of water weight. He states that his shortness of breath was much better. He states he ran out of his water pills roughly 1 week ago and has regained 20 pounds, causing increased shortness of breath and cough. He denies chest pain, but states that he gets short of breath with conversation and normal simple tasks around the house. No one in the house has a fever or cough and no one has a known exposure to COVID-19. He reports that his liver enzymes have been elevated from drinking in the past. MD elicited complaint: shortness of breath Review of Systems General: Reports: 10 or more systems reviewed and unremarkable except in HPI and below Card: Reports: swelling of feet/ankles and dyspnea on exertion Resp: Reports: non-productive cough PFSH ED 2 PFSH: Medical History No pertinent past medical history Urolithiasis Surgical History Hx of knee surgery Social History (Updated 06/26/20 @ 12:02 by Jamal Jones RN) Smoking and tobacco status: current every day smoker Alcohol intake: former Adopted: No Caregiver/support person: No Lives independently: No Household members: significant other Marital status: Life Partner Current occupational status: employed History of recent travel: No Physical Exam Const: COMMON NORMALS: no acute distress, patient oriented x3 and alert HENMT: COMMON NORMALS: normocephalic HEAD & SCALP: normocephalic Eye: COMMON NORMALS: Equal, round and reactive pupils present, conjunctivae normal and no scleral icterus CONJUNCTIVA: Yes conjunctivae normal PUPIL: Yes Equal, round and reactive pupils present Neck/C-Spine: COMMON NORMALS: full ROM and supple Chest: COMMONS NORMALS: normal inspection of the chest Resp: EFFORT & INSPECTION: Yes able to speak in complete sentences (Mildly increased work of breathing.), Yes symmetric chest movement, Yes tachypneic and Yes Actively coughing Cardio: COMMON NORMALS: regular rhythm RATE: tachycardic RHYTHM: regular rhythm Neuro: COMMON NORMALS: patient oriented x3 SENSORIUM/ORIENTATION: Yes alert Course Vital Signs: Vital signs: Vital Signs Temperature 97.3 F L 06/26/20 11:56 Pulse Rate 110 H 06/26/20 16:36 Respiratory Rate 14 06/26/20 16:36 Blood Pressure 153/115 06/26/20 16:36 Pulse Oximetry 96 06/26/20 16:36 MDM - SOB/Dyspnea MDM Narrative: Medical decision making narrative: Patient remained mildly tachycardic, but otherwise hemodynamically stable through ED course. Chest x- ray was unremarkable, however CTA of the chest shows what looks to be bronchitis. I do not suspect PE, ACS, CHF exacerbation, or any other emergent process warranting further work-up at this time. I advised him to follow-up with primary care to make sure he was receiving all of his prescribed medications. He shows good understanding and agrees with plan. Differential Diagnosis: Shortness of Breath Differential Diagnosis: Likely congestive heart failure, community acquired pneumonia and pulmonary embolism Lab Data: Labs: Lab Results 06/26/20 06/26/20 06/26/20 Range/Units 12:15 12:15 12:15 WBC 8.6 (4.0-10.0) 10^3/ uL RBC 4.18 (4.1-5.3) 10^6/u L Hgb 15.4 (11.7-16.6) g/dL Hct 45.3 (42.0-52.0) % MCV 108.4 H (80-94) fL MCH 36.8 H (28.0-34.0) pg MCHC 34.0 (30.0-36.0) g/dL RDW 15.9 H (12.1-15.1) % Plt Count 469 H (130-400) 10^3/c mm MPV 10.3 (7.4-10.4) fL Neut % (Auto) 57.9 % Lymph % (Auto) 26.9 % [place] % (Auto) 9.9 % Eos % (Auto) 3.5 % Baso % (Auto) 1.6 % Neut # (Auto) 4.97 (1.8-7.7) 10^3/u L Lymph # (Auto) 2.3 (0.8-4.8) 10^3/u L [place] # (Auto) 0.9 (0.2-0.9) 10^3/u L Eos # (Auto) 0.3 (0.0-0.8) 10^3/u L Baso # (Auto) 0.1 (0.0-0.1) 10^3/u L Nucleated RBC % (a uto) 0 % Nucleated RBCs # 0.0 /100WBC Sodium 136 (136-145) mmol/L Potassium 4.8 (3.5-5.1) mmol/L Chloride 101 (98-107) mmol/L Carbon Dioxide 22 (22-29) mmol/L Anion Gap 17.8 (5-19) BUN 8 (6-20) mg/dL Creatinine 0.8 (0.7-1.2) mg/dL GFR Calculation 110.7 (90-130) mL/min Glucose 97 (65-115) mg/dL Calculated Osmolal ity 280 L (285-295) mOsm/k g Calcium 9.9 (8.5-10.5) mg/dL Total Bilirubin 0.9 (0.15-1.2) mg/dL AST 26 (0-40) U/L ALT 34 (0-41) U/L Alkaline Phosphata se 95 (40-130) IU/L Troponin T Baselin e 8 (0-15) ng/L Troponin T 120 Min [place] (0-15) ng/L Delta Troponin T (0-10) ABS# NT-Pro-B Natriuret Pep 88 (0-125) pg/mL Total Protein 7.1 (6.6-8.7) g/dL Albumin 4.5 (3.5-5.2) g/dL Globulin 2.6 (1.3-4.6) g/dL 06/26/20 Range/Units 14:10 WBC (4.0-10.0) 10^3/ uL RBC (4.1-5.3) 10^6/u L Hgb (11.7-16.6) g/dL Hct (42.0-52.0) % MCV (80-94) fL MCH (28.0-34.0) pg MCHC (30.0-36.0) g/dL RDW (12.1-15.1) % Plt Count (130-400) 10^3/c mm MPV (7.4-10.4) fL Neut % (Auto) % Lymph % (Auto) % [place] % (Auto) % Eos % (Auto) % Baso % (Auto) % Neut # (Auto) (1.8-7.7) 10^3/u L Lymph # (Auto) (0.8-4.8) 10^3/u L [place] # (Auto) (0.2-0.9) 10^3/u L Eos # (Auto) (0.0-0.8) 10^3/u L Baso # (Auto) (0.0-0.1) 10^3/u L Nucleated RBC % (a uto) % Nucleated RBCs # /100WBC Sodium (136-145) mmol/L Potassium (3.5-5.1) mmol/L Chloride (98-107) mmol/L Carbon Dioxide (22-29) mmol/L Anion Gap (5-19) BUN (6-20) mg/dL Creatinine (0.7-1.2) mg/dL GFR Calculation (90-130) mL/min Glucose (65-115) mg/dL Calculated Osmolal ity (285-295) mOsm/k g Calcium (8.5-10.5) mg/dL Total Bilirubin (0.15-1.2) mg/dL AST (0-40) U/L ALT (0-41) U/L Alkaline Phosphata se (40-130) IU/L Troponin T Baselin e (0-15) ng/L Troponin T 120 Min [place] 8.62 (0-15) ng/L Delta Troponin T 0.62 (0-10) ABS# NT-Pro-B Natriuret Pep (0-125) pg/mL Total Protein (6.6-8.7) g/dL Albumin (3.5-5.2) g/dL Globulin (1.3-4.6) g/dL EKG Data^: EKG 2: EKG Interpretation Date: 06/26/20 EKG interpretation time: 14:28 Interpretation: Sinus rhythm, rate of 87, incomplete right bundle branch block with no ST elevation or depression, intervals within normal limits. Computer Generated Interpretation: EKG 1: EKG Interpretation Date: 06/26/20 EKG interpretation time: 12:55 Interpretation: Sinus tachycardia, rate of 100, questionably short NH interval with measurement of 110 ms, right bundle branch block with no ST elevation or depression, intervals otherwise within normal limits. Discharge Plan Discharge Patient Disposition: Home Clinical Impression: Bronchitis Condition: Stable Prescriptions: No Action bupropion HCl 150 mg tablet sustained-release 12 hr 150 mg PO BID@ RF: 0 spironolactone 25 mg tablet 25 mg PO BID RF: 0 folic acid 1 mg tablet 1 mg PO DAILY RF: 0 Discharge Orders: Discharge ED (Routine); Ordered 06/26/20 Ordered By: Raúl Bell Referrals: Gui Rojo MD [Primary Care Provider] - 1-3 days (return to the emergency room if you get worse before then) Discharge Diet: Low Salt Discharge Activity: Resume usual activity Activity Restrictions/Additional Instructions: Your CT scan showed bronchitis. This is likely causing her shortness of breath and cough. Antibiotics typically do not help this. It is safe to take Tylenol and ibuprofen if you spike a fever. [id number] cough medication may be helpful as well. Coding Level of Care Code ED Inductor Tester for Angel Fwd Exam Detailed
--- NOTE | 2020-06-26 14:27 | ECG_ITS ---
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 [email or web address]
[2020-06-26 14:47] LABS: Troponin 5 2HR 8.62 ng/L (0-15); Troponin 5 2HR Delta 0.62 ABS# (0-10)
--- NOTE | 2020-06-26 15:11 | CT_ITS ---
WS: [id number] CT CHEST ANGIOGRAPHY WITH REFORMATS HISTORY: SOB, PEÑA, tachycardia TECHNIQUE: Contiguous axial images are obtained through the chest during arterial injection of intrav enous contrast. Images are reconstructed to evaluate the pulmonary arteries. MIP imaging also reviewe d. All CT scans at [facility] use at least one of these dose optimization techniques: aut omated exposure control; mA and/or kV adjustment per patient size (includes targeted exams where dose is matched to clinical indication); or iterative reconstruction. CONTRAST: Omnipaque 350; 95 mL IV. DLP: 1858.01 mGy.cm COMPARISON: None available. Adequate opacification of the pulmonary arteries to the segmental branches. No filling defects or pul monary embolism. Normal-sized thoracic aorta. Heart size is normal. No pulmonary nodules or pneumonia . Mildly prominent bilateral hilar soft tissue and bronchial wall thickening extending along the RIGH T upper and RIGHT lower lobe bronchovascular bundles. No pericardial or pleural effusions. Visualized upper abdomen is negative. No osseous abnormalities. CT/CT angio chest PE protcl [id number] IMPRESSION: 1. No pulmonary embolism. 2. Mild bronchovascular wall thickening extending into the proximal RIGHT uppe r and RIGHT lower lobes suggesting a mild bronchitis.
[2020-06-26] MEDS: iohexol 350 mg/mL 100 mL Btl IV ×2 (15:48)
== END 2020-06-26 16:36 | disposition home or self-care (01) ==
PROVIDERS: Emergency Provider Student in an Organized Health Care Education/Training Program; PCP Family Medicine
DX: J40 Bronchitis, not specified as acute or chronic (principal); F17.210 Nicotine dependence, cigarettes, uncomplicated
CPT/HCPCS: 12345; 71045; 71275; 80053; 83880; 84484; 85025; 93005; 96374; 99283; J1940; Q9967